=== PATIENT | female | born 1960 | race Hispanic/Latino ===

== ENCOUNTER 2019-09-19 08:28 | Outpatient (CLI) | payer BC ==
--- NOTE | 2019-09-19 11:55 | ULT ---
ULTRASOUND PELVIC ULTRASOUND TRANSVAGINAL DOPPLER DUPLEX: DATE: 09/19/2019. HISTORY: A 59-year-old female with postmenopausal vaginal bleeding. TECHNIQUE: Transabdominal transducer used to evaluate intrapelvic contents using the urinary bladder as an acous tic window. Endovaginal transducer used to visualize intrapelvic contents in greater detail. Color fl ow Doppler and Pulsed Doppler spectral waveform analysis of ovaries. FINDINGS: Uterus: 7.5 x 4 x 5 cm. Endometrial stripe: Completely effaced at the fundus by large fibroid. At uterine corpus, fluid in t he endometrial cavity mildly dilates the diameter to approximately 0.2 cm. Right Ovary: 2.4 x 1.5 x 1.5 cm. Flow demonstrated. There are several small hyperechoic foci a few millimeters in size each, within the right ovary, questionable for calcifications. Left Ovary: 1.3 x 1.2 x 1.4 cm. Flow demonstrated. No ovarian cyst. No free fluid in the cul-de-sac. There is a round, 4.5 x 4 x 3.5 cm solid mass centrally located, dominating the fundus of the uterus. IMPRESSION: 1. A moderately large 4.5 cm uterine leiomyoma (fibroid) centrally located at the uterine fundus, co mpletely obscuring and distorting the endometrial stripe there. 2. A small amount of free fluid in the endometrial cavity in the body of the uterus. 3. Apparent multiple small calcifications in the right ovary, of uncertain etiology. MARCIAL Lara POS: TPC
--- NOTE | 2019-09-19 12:45 | BD ---
DEXA BONE DENSITOMETRY: (Dual energy X-ray Absorptiometry) DATE: 09/19/2019. HISTORY: A 59-year-old female for baseline, age-related, postmenopausal screening osteoporosis screen ing examination. Height: 62.5 inches. Weight: 178 pounds. COMPARISON: None available. FINDINGS: The bone mineral density (BMD) is given in grams per square centimeter (g/cm2): LUMBAR SPINE: BMD(g/cm2) T-score Z-score L1: 0.769 -2.0 -0.8 L2: 0.858 -1.5 -0.2 L3: 0.847 -2.2 -0.7 L4: 0.964 -0.9 +0.6 Total: 0.868 -1.6 -0.2 HIP: Femoral neck: 0.706 -1.3 -0.2 Total: 0.829 -0.9 -0.1 FRAX WHO Fracture Risk Assessment Tool: 10 Year Fracture Risk * Major osteoporotic fracture: 7.1% Hip fracture: 0.8% Reported Risk Factors: [place] , Neck BMD=0.706, BMI=32.0, and smoking. * Fracture probability is calculated for an untreated patient. Fracture probability may be lower if the patient has received treatment. IMPRESSION: 1) The mean bone mineral density of the lumbar spine is osteopenic. Fracture risk is increased. 2) The bone mineral density of the femoral neck is osteopenic. Fracture risk is increased. MARCIAL Lara POS: TPC
== END 2019-09-19 08:29 | disposition home or self-care (01) ==
LOC: BICULT 08:28
PROVIDERS: ATTEND Nurse Practitioner
DX: Z13.820 Encounter for screening for osteoporosis (principal); Z12.39 Encounter for other screening for malignant neoplasm of breast; N95.0 Postmenopausal bleeding; N83.8 Other noninflammatory disorders of ovary, fallopian tube and broad ligament; D25.9 Leiomyoma of uterus, unspecified; N85.8 Other specified noninflammatory disorders of uterus; M85.859 Other specified disorders of bone density and structure, unspecified thigh; M85.88 Other specified disorders of bone density and structure, other site
CPT/HCPCS: 76856; 77080